=== PATIENT | male | born 1960 | race Caucasian/White ===

== ENCOUNTER 2023-02-04 06:10 | Day surgery (SDC) | payer BC, SELFPAY ==
[2023-02-04] VITALS (16 sets, daily range): BP systolic 122–159; BP diastolic 78–97; PULSE 69–94; RESP 18; TEMP 36.1–36.7; O2SAT 92–99; BMI 23.1
[2023-02-04] MEDS: LACTATED RINGERS 1000 ML 1,000 ML 100 ML IV (06:10)
[2023-02-04] MEDS: SODIUM CHLORIDE 0.9 % (FLUSH) 10 ML SYRINGE IVF (06:59)
--- NOTE | 2023-02-04 07:34 | P.GSOP_ITS ---
Operative Note Pre-op diagnosis: Left inguinal hernia Post-op diagnosis: Same Type of Procedure: Laparoscopic left inguinal hernia repair with mesh Indications: The patient is a 62-year-old male who presented to clinic with a left groin bulge which presented after doing some strenuous lifting. Because it was limiting his activities, we discussed hernia repair and he agreed to proceed. Procedure Description: After discussing the risks and benefits of the procedure, the patient signed informed consent.? The operative site was marked and the patient was brought to the operating room and placed on the operating table in supine position.? Care was taken to pad the patient's pressure points.?? The patient was then intubated by anesthesia.?? The operative site was then prepped and draped in the usual sterile fashion.? A time-out was then performed. A curvilinear incision was made below the umbilicus. Dissection was carried down to subcutaneous tissue until the anterior rectus fascia was encountered. This was incised off the midline on the left. The rectus muscle fibers were then retracted exposing the posterior fascia. A port with a dissecting balloon was then introduced into the pre-preperitoneal space. This was inflated under direct vision. The balloon was deflated, removed, and a 10 mm working port was placed. The space was insufflated and a 10 mm 30-degree scope was then advanced into the space. Two 5 mm ports were placed in the midline under direct vision. Dissection began on the left side. Uriel's ligament and the pubic bone were exposed medially. Following this, dissection was carried out laterally. An indirect defect was noted. The sac was dissected free from the cord structures using a combination of sharp and blunt dissection. Once the sac was completely reduced, a piece of large Bard 3DMax mesh for the appropriate side was placed into the abdomen. This was positioned with the marker pointed medially. A Tacker was used to attach the mesh medially at Uriel's ligament and 1 tack laterally with care to avoid the epigastric vessels and stay above the inguinal ligament. Once this was completed the sac was placed on top of the mesh and the preperitoneal space desufflated under direct vision to ensure the mesh laid flat. 10 mL of 0.5% Marcaine were instilled into the preperitoneal space throu gh a port. The ports were removed. The fascia from the infraumbilical port was closed with 0 Vicryl. The skin incisions were closed with absorbable subcuticular suture. Sterile dressings were then applied. The scrotum was examined to ensure that both testicles were down. Instrument sponge and needle counts were correct at the end of the case. ? The patient was then woken and transported to the recovery area in stable condition. ? The patient tolerated the procedure well. Findings: Indirect left inguinal hernia Implants: Bard 3DMax mesh Anesthesia: GETA Surgeon: Julita Velazquez MD Estimated blood loss (mL): 5 Condition: stable Disposition: PACU Date of procedure: 02/04/23
--- NOTE | 2023-02-04 07:48 | W.ANESCHARGE ---
Anesthesia Charges Start Date/Time Anesthesia Start Date: 02/04/23 Anesthesia Start Time: 07:30 Stop Date/Time Anesthesia Stop Date: 02/04/23 Anesthesia Stop Time: 08:49
[2023-02-04] MEDS: BUPIVACAINE 0.25% 30 ML INJECTION (07:56)
--- NOTE | 2023-02-04 08:20 | SUR.OPER ---
PATIENT QUESTIONS ANSWERED SATISFACTORILY PREOPERATIVELY. PATIENT BROUGHT TO OR #1 PER CART. Patient positioned supine on OR #1 bed. The perioperative team supported arms bilaterally on arm boards for the intubation. Final approval of positioning by surgeon.
--- NOTE | 2023-02-04 08:49 | W.ANESCHARGE ---
Anesthesia Charges Start Date/Time Anesthesia Start Date: 02/04/23 Anesthesia Start Time: 07:30 Stop Date/Time Anesthesia Stop Date: 02/04/23 Anesthesia Stop Time: 08:49
[2023-02-04] MEDS: fentaNYL 100 MCG/2 ML inj 50 MCG IVP (09:13)
[2023-02-04] MEDS: KETOROLAC 15 MG/ML inj IVP (10:57)
== END 2023-02-04 11:20 | disposition home or self-care (01) ==
PROVIDERS: PCP Family Medicine; Visit Provider Surgery
PROC: (CPT 49650; principal; 2023-02-04 07:30)
DX: K40.90 Unilateral inguinal hernia, without obstruction or gangrene, not specified as recurrent (principal)
CPT/HCPCS: 49650; 00830; 00860; C1781; J0330; J0665; J1100; J1885; J2250; J2405; J2704; J3010; J3370; J7050; J7120